=== PATIENT | male | born 1980 | race Caucasian/White ===

== ENCOUNTER 2022-04-06 06:49 | Outpatient (CLI) | payer BC, SELFPAY ==
--- NOTE | ~2022-04-06 | MR_ITS ---
EXAMINATION: MR abdomen wo/w con DATE: 04/06/2022 07:59 INDICATION: Splenic mass. TECHNIQUE: Magnetic resonance imaging (MRI) of the abdomen was performed without and with 20 mL Multi Bonnie intravenous contrast. COMPARISON: CT abdomen 10/20/2004 FINDINGS: The liver and gallbladder are normal. There is a 2.9 cm cyst in the spleen. The gallbladder is normal . Pancreas divisum is noted. The adrenal glands and right kidney is normal. There is a 6 mm cyst in l eft kidney. There are no dilated loops of bowel. There are no pathologically enlarged lymph nodes. Th ere is no free intraperitoneal fluid. IMPRESSION: 1. 2.9 cm benign cyst in the spleen. Reviewed, dictated and finalized at location A. [facility]
== END 2022-04-06 06:50 | disposition home or self-care (01) ==
PROVIDERS: PCP Internal Medicine; Visit Provider Internal Medicine
DX: R16.1 Splenomegaly, not elsewhere classified (principal); D73.4 Cyst of spleen
CPT/HCPCS: 74183; A9577

== ENCOUNTER 2022-04-22 00:55 | Day surgery (SDC) | payer BC, SELFPAY ==
[2022-04-06 11:48] VITALS: BMI 31.8
--- NOTE | 2022-04-22 06:41 | PM.HPGS ---
History of Present Illness History of Present Illness Consent: Risks, benefits, and alternatives have been discussed and questions answered. Patient agrees to proceed with procedure. Chief complaint: abdominal pain and melena Narrative: Brian Steward is a 41 year old male with recent left lower quadrant pain suggestive of diverticulitis. CT was inconclusive, showing diverticulosis. His symptoms resolved after taking antibiotics per This had all began with back pain that he thought was due to lifting. he did have documented diverticulitis last year. Review of Systems Review of Systems: All systems reviewed & are unremarkable except as noted in HPI and below PMFSH Past Medical History Medical History Hx of diverticulitis of colon Family History Family History Father Hypertension Mother Patient's mother is in good health Other Family history of malignant neoplasm Social History Social History Smoking status: Never smoker Second hand tobacco smoke exposure: No Alcohol intake: current Alcohol use details: every 3 months Substance use type: does not use Lack of Transportation: No Lack of Food: Never True Current Housing: I Have Housing Concerned About Future Housing: No Difficulty Paying Gas/Electric Bills: No Difficulty Paying for Meds: No Currently Unemployed: No Education: Trade/Vocational Certificate Difficulty w/ Childcare or Family Care: No Living arrangements: with family Spiritual care concerns: No Meds Home Medications and Allergies Home Medications Medication Instructions Recorded Confirmed Type testosterone enanthate 100 mg/0.5 100 mg subcut 2XW 06/18/21 04/22/22 History mL subcutaneous auto-injector cyclobenzaprine 10 mg tablet 10 mg PO .at bedtime PRN muscle 07/23/21 04/22/22 Rx spasm #30 tabs clonazepam 1 mg tablet 1 mg PO .hs PRN insomnia #30 tabs 03/01/22 04/22/22 Rx fexofenadine 60 mg-pseudoephedrine 1 tablet PO DAILY 03/04/22 04/22/22 History ER 120 mg tablet,ext.release,12 hr (Mila-D 12 Hour) Allergies Allergy/AdvReac Type Severity Reaction Status Date / Time No Known Allergies Allergy Verified 04/22/22 11:47 Exam Resp: Auscultation: clear to auscultation bilaterally Cardio: Rate: regular rate Rhythm: regular rhythm GI: GI Palp: Yes Soft to palpation and No Tenderness to palpation present (GI) Assessment and Plan Assessment and plan (1) Hx of diverticulitis of colon: Code(s): Z87.19 - Personal history of other diseases of the digestive system Status: Acute Assessment and Plan: Colonoscopy with possible biopsy or polypectomy or cautery or injection of substances.
[2022-04-22 11:48] VITALS: BP 125/84; PULSE 79; RESP 16; TEMP 36.3; O2SAT 98; BMI 31.6
[2022-04-22] MEDS: LACTATED RINGERS 1,000 ML 150 ML IV CONT (11:56)
--- NOTE | 2022-04-22 12:20 | P.PNAN_ITS ---
Anes - Initial Pre Proc Eval Procedure: Operation Date: 04/22/22 13:00 Proposed Procedures p Colonoscopy - Kedar Holder MD Date/Time: 04/22/22 12:20 Surgeon: Kedar Holder MD Pre Op Diagnosis: abdominal pain and melena Patient Data Age: 41 Gender: M Height: 1.85 m Weight: 108.7 kg Last Vital Signs Temp 36.3 C L 04/22/22 11:48 Pulse 79 04/22/22 11:48 Resp 16 04/22/22 11:48 BP 125/84 04/22/22 11:48 Pulse Ox 98 04/22/22 11:48 Allergies Allergy/AdvReac Type Severity Reaction Status Date / Time No Known Allergies Allergy Verified 04/22/22 11:47 Home Medications Medication Instructions Recorded Confirmed Type testosterone enanthate 100 mg/0.5 100 mg subcut 2XW 06/18/21 04/22/22 History mL subcutaneous auto-injector cyclobenzaprine 10 mg tablet 10 mg PO .at bedtime PRN muscle 07/23/21 04/22/22 Rx spasm #30 tabs clonazepam 1 mg tablet 1 mg PO .hs PRN insomnia #30 tabs 03/01/22 04/22/22 Rx fexofenadine 60 mg-pseudoephedrine 1 tablet PO DAILY 03/04/22 04/22/22 History ER 120 mg tablet,ext.release,12 hr (Mila-D 12 Hour) Patient hx anesthesia problems: none Family hx anesthesia problems: none Results Review: All pre-operative results and documents have been reviewed as part of the pre- operative evaluation. [facility] Past Medical History Medical History Hx of diverticulitis of colon Surgical History Surgical History (Updated 04/22/22 @ 12:20 by Stevie Barkley MD) History of thoracotomy Family History Family History Father Hypertension Mother Patient's mother is in good health Other Family history of malignant neoplasm Social History Social History Smoking status: Never smoker Second hand tobacco smoke exposure: No Alcohol intake: current Alcohol use details: every 3 months Substance use type: does not use Lack of Transportation: No Lack of Food: Never True Current Housing: I Have Housing Concerned About Future Housing: No Difficulty Paying Gas/Electric Bills: No Difficulty Paying for Meds: No Currently Unemployed: No Education: Trade/Vocational Certificate Difficulty w/ Childcare or Family Care: No Living arrangements: with family Spiritual care concerns: No Anes - Eval Final PreProcedure Day of Procedure 04/22/22 12:20 Patient weight: overweight Heart: regular rate and rhythm Lungs: clear to auscultation Airway: Mallampati scale class II Neurological: alert and oriented Last oral intake: >/= 8 hours ASA classification: II Emergent: no Anesthetic plan: proceed Anesthesia type and monitoring: general GIVS and standard monitoring Results Review: All pre-operative results and documents have been reviewed as part of the pre- operative evaluation. Informed Consent: The patient's anesthetic plan and its attendant risks and benefits were discussed with the patient/family/POA. Questions were solicited and answers provided to the satisfaction of the patient/family/POA.
[2022-04-22] MEDS: SIMETHICONE ORAL SUSPENSION 20 MG/0.3 ML 30 ML BOTTLE 0.6 ML IRRIGATION (12:39)
[2022-04-22 12:47] VITALS: BP 92/53; PULSE 69; RESP 16; O2SAT 98
[2022-04-22 12:57] VITALS: BP 91/55; PULSE 60; RESP 18; O2SAT 98
[2022-04-22 13:07] VITALS: BP 108/72; PULSE 66; RESP 82; O2SAT 95
== END 2022-04-22 13:25 | disposition home or self-care (01) ==
PROVIDERS: PCP Internal Medicine; Visit Provider Internal Medicine Gastroenterology
PROC: 0DJD8ZZ Inspection of Lower Intestinal Tract, Via Natural or Artificial Opening Endoscopic (ICD-10-PCS; CPT 45378; principal; 2022-04-22 13:00)
DX: Z09 Encounter for follow-up examination after completed treatment for conditions other than malignant neoplasm (principal); K57.30 Diverticulosis of large intestine without perforation or abscess without bleeding; Z87.19 Personal history of other diseases of the digestive system
CPT/HCPCS: 45378; J2704; J7120